=== PATIENT | male | born 1980 | race Caucasian/White ===

== ENCOUNTER 2018-12-27 14:07 | Emergency (ER) | payer MEDICAID ==
[2018-12-27 14:16] VITALS: BP 112/72
--- NOTE | 2018-12-27 14:16 | ED ---
Substance Abuse/Use - HPI Summary HPI Summary: The patient is a 38 y/o M arriving by ambulance to [facility] with a chief complaint of opiate overdose today. EMS was called by a witness who found the patient unresponsive and apneic. He was given 2 doses of 4mg Narcan intranasal with good effect. . In the ED, he states he feels okay and would like to go home. Pt with a h/o heroin use. Denies other substances today. Denies cp, sob, abd pain. no n/v/d, no headache,vision changes. He has previously been on Suboxone from [employer]. Patients medications reviewed this visit. - History Of Current Complaint Stated Complaint: OVERDOSE PER EMS Hx Obtained From: Patient, EMS Onset/Duration of Drug/ETOH Abuse: Minutes - [employer] Ingestion History: Type/Name Of Drug - opiate Alleviating Factor(s): Other - Narcan intervenion by EMS Associated Signs And Symptoms: Other: - unreponsive that resolved with Narcan - Allergies/Home Medications Allergies/Adverse Reactions: Allergies Allergy/AdvReac Type Severity Reaction Status Date / Time No Known Allergies Allergy Verified 03/21/13 15:56 PMH/Surg Hx/FS Hx/Imm Hx Previously Healthy: Yes Endocrine/Hematology History: Denies: Hx Anticoagulant Therapy, Hx Blood Disorders, Hx Diabetes Cardiovascular History: Denies: Hx Congestive Heart Failure Respiratory History: Reports: Hx Pneumonia, Other Respiratory Problems/ Disorders - rib fx Musculoskeletal History: Reports: Hx Back Problems Neurological History: Reports: Other Neuro Impairments/Disorders - RLS - takes gabapentin Psychiatric History: Reports: Hx Anxiety - takes gabapentin, Hx Depression, Hx Bipolar Disorder - Surgical History Surgical History: None Surgery Procedure, Year, and Place: none Hx Anesthesia Reactions: No Infectious Disease History: Reports: Hx Hepatitis - hep c - Family History Known Family History: Positive: Non-Contributory Negative: Cardiac Disease, Hypertension, Diabetes - Social History Occupation: Unemployed Lives: With Family Alcohol Use: None - none currently Hx Substance Use: Yes Substance Use Type: Denies: Cocaine, Heroin, Marijuana, Prescribed Substance Use Comment - Amount & Last Used: in long term (past?) Hx Tobacco Use: Yes Smoking Status (MU): Current Every Day Smoker Type: Cigarettes Review of Systems Constitutional: Negative Eyes: Negative Neurological: Other - unresponsive (resolved) Psychological: Other - opiate substance use All Other Systems Reviewed And Are Negative: Yes Physical Exam - Summary Physical Exam Summary: Vital Signs Reviewed: Yes A+Ox3, no distress Eyes: Conjunctiva Clear, NATALIE - 4mm b/l, . EOM intact and full ENT: Hearing grossly normal TM x 2 clear, mmoist, uvula midline, no exudate, no erythema Neck: Positive: Supple Respiratory: Positive: No respiratory distress, No accessory muscle use + CTA throughout no w/r Cardiovascular: RRR nl s1, s2 no m/r CBT <2 sec abd soft + BS nt/nd no guarding, no distension Musculoskeletal Exam: DOMÍNGUEZ x 4 without difficulty Strength Intact, ROM Intact Neurological: Positive: Alert, + sensation throughout Psychological: Positive: Normal Response To examiner Skin: Positive: no rash, no ecchymosis Triage Information Reviewed: Yes Vital Signs Reviewed: Yes Re-Evaluation - Re-Evaluation First Eval Re-Evaluation Time: 14:15 Comment: Patient agrees with taking prescription for Narcan - will try to fill here with employee pharmacy Second Eval Re-Evaluation Time: 14:35 Comment: Patient has eloped prior to discharge. Course/Dx - Course Course Of Treatment: Patient presents to urgent MRSA permit be EMS after Narcan 8 mg wake-up after using heroin. Patient states injected and has been doing so daily. Patient states he was given Narcan with before by a friend but never had any resuscitated by EMS. Patient is not receiving chest compressions a. Patient states he would like to leave. After discussion, patient agreement that he will stay was 45 minutes. We'll then discharge patient. Patient states he will contact reaches seemed to get back on Suboxone. We'll vertigo patient [place] prescription prior to discharge. Patient comfortable in agreement with plan. Patient. Patient okay to eat and drink and remain on telemetry. - Diagnoses Provider Diagnoses: Opiate overdose Discharge - Sign-Out/Discharge Documenting (check all that apply): Patient Departure - Patient has eloped. Patient Received Moderate/Deep Sedation with Procedure: No - Discharge Plan Condition: Improved Disposition: ELOPEMENT Prescriptions: Naloxone Nasal [place]* [Narcan Nasal [place]] 4 mg NASAL ONCE PRN #1 nasal.spr PRN Reason: opiate overdose Patient Education Materials: Opioid Safety (ED), Opioid Use Disorder (ED) Referrals: [facility],. [Z.BUSINESS, APPLICATION, OTHER] - As Soon As Possible (Walk in or call the clinic today or tomorrow ) Additional Instructions: - Contact [facility] today or tomorrow to schedule an appointment - Keep Narcan with you - use as needed for opiate overdose - stay well hydrated - drink plenty of non-alcoholic, non-caffinated beverages - Billing Disposition and Condition Condition: IMPROVED Disposition: Elopement - Attestation Statements Document Initiated by Glendyibe: Yes Documenting Scribe: Kellee Solo Provider For Whom Margo is Documenting (Include Credential): Dr. Eliz Salinas MD Scribe Attestation: Kellee Hines, scribed for Dr. Eliz Salinas MD on 12/27/18 at 1602. Scribe Documentation Reviewed: Yes Provider Attestation: The documentation as recorded by the Kellee miner accurately reflects the service I personally performed and the decisions made by me, Dr. Eliz Salinas MD Status of Scribe Document: Viewed
== END 2018-12-27 14:37 | disposition left against medical advice (07) ==
LOC: ED 14:07
DX: T40.601A Poisoning by unspecified narcotics, accidental (unintentional), initial encounter (principal); Y92.9 Unspecified place or not applicable; F17.210 Nicotine dependence, cigarettes, uncomplicated; F31.9 Bipolar disorder, unspecified; F41.9 Anxiety disorder, unspecified; Z79.899 Other long term (current) drug therapy
CPT/HCPCS: 99282

== ENCOUNTER 2019-05-24 20:02 | Emergency (ER) | payer MEDICAID, OTHER ==
[2019-05-24] MEDS ORDERED: NS 0.9% 1000 ML** 1,000 ML IV.FLUID IV ONE (20:14)
[2019-05-24] MEDS ORDERED: metroNIDAZOLE IV 500 MG/100ML* 500 MG/100 ML BAG IVPB ONE (20:14)
[2019-05-24] MEDS ORDERED: Cefepime(*) 2 GM in NS 0.9% 50 ML* 50 ML IVPB ONE (20:14)
--- NOTE | 2019-05-24 20:42 | ED ---
Skin Complaint - HPI Summary HPI Summary: Patient is a 38 y/o M presenting to [facility] with complaints of left hand pain and swelling. He notes that Sx first onset several days ago and notes two different abscesses to this left hand and wrist. He states that he poked these areas with a knife, no drainage noted. Most recent drainage attempt was this evening, . Patient claims that he injected heroin this morning, 05/24/19. Since around 1400 today, pain and swelling notably worsened. He denies fever and vomiting. PMHx of PNA with chest tube placement is noted. He reports NDKA. Home medications and allergies are reviewed. - History of Current Complaint Chief Complaint: EDRashSkinAbscess Time Seen by Provider: 05/24/19 20:13 Stated Complaint: LT HAND SWOLLEN PER PT Hx Obtained From: Patient Onset/Duration: Started Days Ago, Still Present, Worse Since Skin Exposure Onset/Duration: Days Ago, Worse Since: Timing: Constant, Lasting Days Onset Severity: Mild Current Severity: Severe Pain Intensity: 9 Pain Scale Used: 0-10 Numeric Skin Location: Hand - left Character: Swelling, Pain, Redness, Painful Associated Signs & Symptoms: Negative - Allergy/Home Medications Allergies/Adverse Reactions: Allergies Allergy/AdvReac Type Severity Reaction Status Date / Time No Known Allergies Allergy Verified 05/24/19 20:09 PMH/Surg Hx/FS Hx/Imm Hx Endocrine/Hematology History: Denies: Hx Anticoagulant Therapy, Hx Blood Disorders, Hx Diabetes Cardiovascular History: Denies: Hx Congestive Heart Failure Respiratory History: Reports: Hx Pneumonia, Other Respiratory Problems/ Disorders - rib fx Musculoskeletal History: Reports: Hx Back Problems Neurological History: Reports: Other Neuro Impairments/Disorders - RLS - takes gabapentin Psychiatric History: Reports: Hx Anxiety - takes gabapentin, Hx Depression, Hx Bipolar Disorder - Surgical History Surgery Procedure, Year, and Place: none Hx Anesthesia Reactions: No Infectious Disease History: Yes Infectious Disease History: Reports: Hx Hepatitis - hep c Denies: Traveled Outside the [place] in Last 30 Days - Family History Known Family History: Negative: Cardiac Disease, Hypertension, Diabetes - Social History Alcohol Use: None - none currently Hx Substance Use: Yes Substance Use Type: Denies: Cocaine, Heroin, Marijuana, Prescribed Substance Use Comment - Amount & Last Used: in prison (past?) Hx Tobacco Use: Yes Smoking Status (MU): Current Every Day Smoker Type: Cigarettes Review of Systems - [employer] System Summary Review of Systems Summary: Home Medications Medication Instructions Recorded Confirmed Type Gabapentin CAP(*) [Neurontin 300 300 mg PO TID 10/30/14 11/21/14 History CAP(*)] Ziprasidone HCl [Geodon] 40 mg PO DAILY 10/30/14 11/21/14 History Ertoapentam 1 gm IV DAILY 11/21/14 11/21/14 History Iv Antibiotics 11/21/14 11/21/14 History Naloxone Nasal [place]* [Narcan 4 mg NASAL ONCE PRN #1 nasal.spr 12/27/18 Rx Nasal [place]] Negative: Fever Negative: Vomiting Positive: Myalgia - left hand , Edema - left hand Skin: Other - positive - possible left hand abscess All Other Systems Reviewed And Are Negative: Yes Physical Exam - Summary Physical Exam Summary: General: Well-developed, Well-nourished male. Appears in mild discomfort, restless, and with constant movement HEENT: Normocephalic, Atraumatic. Eyes: Conjuctiva normal, PERRL. Oropharynx: Clear, mucous membranes moist, (-) exudates. Neck: Soft, FROM, (-) lymphadenopathy, (-) thyromegaly, (-) JVD. Cardiovascular: Normal sinus rhythm, (-) murmur. Lungs: Clear to auscultation bilaterally (-) wheezes, (-) rales, (-) rhonchi. Abdomen: Soft, non-tender, non-distended, (-) organomegaly, normal bowel sounds. Back: (-) CVA tenderness Extremities: Limited ROM of left hand and wrist but good pulses and good cap refill. Skin: There is erythema and swelling to the left hand and wrist. There is tenderness and warmth at the wrist, multiple areas of track fiore and scars noted. Neuro: Alert and oriented x3, no focal deficits. Psychiatric: Mildly agitated Triage Information Reviewed: Yes Vital Signs On Initial Exam: Initial Vitals Temp Pulse Resp BP Pulse Ox 97.9 F 108 16 139/85 95 05/24/19 20:04 05/24/19 20:04 05/24/19 20:04 05/24/19 20:04 05/24/19 20:04 Vital Signs Reviewed: Yes Procedures - Sedation Patient Received Moderate/Deep Sedation with Procedure: No Diagnostics - Vital Signs Vital Signs Temp Pulse Resp BP Pulse Ox 05/24/19 20:04 97.9 F 108 16 139/85 95 - Laboratory Result Diagrams: 05/24/19 20:38 05/24/19 20:38 Lab Statement: Any lab studies that have been ordered have been reviewed, and results considered in the medical decision making process. - Radiology LEFT WRIST X-RAY Radiology Interpretation Completed By: ED Physician Summary of Radiographic Findings: No obvious abnormality, pending official report. Course/Dx - Course Course Of Treatment: 38 year old male presents with left wrist swelling, erythema and warmth. worsening. IVDA. last shot heroin this am. no f/c/n/v/d. no cp/cough/sob. During ED course, patient received fluids, Flagyl 500 mg in 100 mls @ 100 mls/hr IVPB, Toradol 15 mg IV, and Cefepime 2 gm in 50 mls @ 100 mls/hr IV. normal wbc, lactic acid, no fever. discharged to home. started on augmentin and clindamycin. Follow up with PCP, follow up sooner for any worsening symptoms. - Diagnoses Provider Diagnoses: Abscess of left upper extremity, IV drug abuse Discharge ED - Sign-Out/Discharge Documenting (check all that apply): Patient Departure - discharge - Discharge Plan Condition: Stable Disposition: HOME Prescriptions: Amoxicillin/Clavulanate TAB* [Augmentin TAB 875*] 875 mg PO BID #20 tab Clindamycin Cap(NF) [Clindamycin Cap 300 mg Cap(NF)] 300 mg PO Q6H #40 cap Patient Education Materials: Abscess (ED), Polysubstance Abuse (ED) Referrals: [facility] [Outside] - 3 Days Additional Instructions: PLEASE RETURN TO ED FOR ANY NEW OR WORSENING SYMPTOMS. PLEASE FOLLOW UP WITH YOUR PRIMARY CARE PHYSICIAN WITHIN THREE DAYS. - Billing Disposition and Condition Condition: STABLE Disposition: Home - Attestation Statements Document Initiated by Margo: Yes Documenting Scribe: REX CANSECO Provider For Whom Margo is Documenting (Include Credential): KENAN NUNO MD Scribe Attestation: REX Hines, scribed for KENAN NUNO MD on 05/25/19 at 0108. Scribe Documentation Reviewed: Yes Provider Attestation: The documentation as recorded by the REX miner accurately reflects the service I personally performed and the decisions made by me, KENAN NUNO MD Status of Scribe Document: Viewed
[2019-05-24 20:56] LABS: ABS Eosinophils 0.2 10^3/ul (0-0.6); ABS Lymphocytes 0.8 10^3/ul (1.0-4.8); ABS Monocytes 0.4 10^3/ul (0-0.8); ABS Neutrophils 5.4 10^3/ul (1.5-7.7); Eosinophil % 2.2 %; Hematocrit 38 % (42-52); Hemoglobin 13.5 g/dL (14.0-18.0); Lymphocyte % 11.6 %; Mean Corpuscular HGB Conc 35 g/dL (31-36); Mean Corpuscular Hemoglobin 31 pg (27-31); Mean Corpuscular Volume 87 fL (80-94); Platelet Count 130 10^3/uL (150-450); Red Blood Count 4.36 10^6 /uL (4.18-5.48); Red Cell Distribution Width 13 % (10-15); White Blood Count 6.8 10^3/uL (3.5-10.8)
[2019-05-24] MEDS ORDERED: Vancomycin(*) 1,000 MG VIAL IVPB SCH (21:00)
[2019-05-24] MEDS ORDERED: Cefepime 2 GM in Dextrose(*) 2 GM/50 ML BAG IV ONE (21:00)
[2019-05-24 21:06] LABS: Activated Partial Thrombo Time 35.1 seconds (26.0-38.0); INR 1.01 (0.82-1.09)
[2019-05-24 21:10] LABS: Albumin/Globulin Ratio 1.4 (1-3); BUN/Creatinine Ratio 21.6 (8-20); C Reactive Protein 73.59 mg/L (<8.01); Calcium 8.8 mg/dL (8.6-10.3); EGFR African American 142.5 (>60); EGFR Non-African American 117.7 (>60); Globulin 2.9 g/dL (2-4); Total Bilirubin 0.3 mg/dL (0.2-1.0); Total Protein 6.9 g/dL (6.4-8.9)
[2019-05-24 22:34] LABS: Erythrocyte Sed Rate 28 mm/Hr (0-14)
[2019-05-24 23:01] LABS: Urine Appearance Clear; Urine Bilirubin Negative (Negative); Urine Blood Negative (Negative); Urine Color Yellow; Urine Glucose Negative (Negative); Urine Ketones Negative (Negative); Urine Nitrite Negative (Negative); Urine Protein Negative (Negative); Urine Specific Gravity 1.018 (1.010-1.030); Urine Urobilinogen Negative (Negative)
[2019-05-24] MEDS ORDERED: Ketorolac INJ* 30 MG/ML 1 ML VIAL IV PUSH ONE (23:01)
[2019-05-24] MEDS: Vancomycin(*) 1,750 MG in NS 0.9% 500 ML* 500 ML IVPB ONE (23:51)
[2019-05-24 23:53] LABS: Urine Benzodiazepine Screen None Detected (None Detect); Urine Opiates Screen Presumptive Positive (None Detect)
[2019-05-25] MEDS: Vancomycin(*) 1,750 MG in NS 0.9% 500 ML* 500 ML IVPB ONE (00:03)
[2019-05-25 01:11] VITALS: BP 126/79
== END 2019-05-25 01:10 | disposition home or self-care (01) ==
LOC: ED 20:02
DX: L02.414 Cutaneous abscess of left upper limb (principal); F19.10 Other psychoactive substance abuse, uncomplicated; F41.9 Anxiety disorder, unspecified; F31.9 Bipolar disorder, unspecified; F17.210 Nicotine dependence, cigarettes, uncomplicated
CPT/HCPCS: 36415; 80053; 80307; 81003; 83605; 85025; 85610; 85652; 85730; 86140; 87040; 96361; 96365; 96367; 96375; 99283; J0692; J1885; J3370